=== PATIENT | male | born 2000 | race Caucasian/White ===

== ENCOUNTER 2022-01-28 15:26 | Day surgery (SDC) | payer OTHER ==
[~2022-01-28] VITALS: Ht 193 cm; Wt 73.0 kg
[~2022-01-28 15:26] MED LIST: AMPICILLIN SOD/SULBACTAM SOD 3 GM in D5W MINI-BAG PLUS 100 ML IV ONE; CLON1TAB8 PO; GABA600T4 PO; LR 1,000 ML IV SCH; METH20TA29 PO; OMEP40CA5 PO; dexameTHASONE 4 MG/ML 1ML VIAL (J1100 PER 1MG) IV ONE
[2022-01-28] MEDS ORDERED: CHLORHEXIDINE GLUCONATE 0.12 % 15ML UDC (PERIDEX ORAL RINSE) As Ordered ONE (17:37)
[2022-01-28] MEDS ORDERED: LIDOCAINE 2% W/ EPINEPHRINE 1.7 ML DENTAL INJ As Ordered ONE (17:38)
[2022-01-28] MEDS ORDERED: dexameTHASONE 4 MG/ML 1ML VIAL (J1100 PER 1MG) As Ordered ONE (17:42)
[2022-01-28] MEDS ORDERED: ONDANSETRON 4MG 2ML VIAL As Ordered ONE ×2 (17:42→19:47)
[2022-01-28] MEDS ORDERED: ROCURONIUM BROMIDE 50 MG/5 ML VIAL As Ordered ONE (17:42)
[2022-01-28] MEDS ORDERED: LIDOCAINE 2% INJ 100 MG/5 ML SYRINGE As Ordered ONE (17:42)
[2022-01-28] MEDS ORDERED: KETOROLAC 60MG 2ML VIAL As Ordered ONE (17:42)
[2022-01-28] MEDS ORDERED: MIDAZOLAM INJ 2MG/2ML VIAL (J2250 PER 1MG) As Ordered ONE (17:42)
[2022-01-28] MEDS ORDERED: propofoL 200 MG/20 ML VIAL As Ordered ONE (17:42)
[2022-01-28] MEDS ORDERED: METOCLOPRAMIDE INJ 10MG/2ML VIAL (J2765 PER 1) As Ordered ONE (17:42)
[2022-01-28] MEDS ORDERED: fentaNYL 100 MCG/2 ML INJECTION As Ordered ONE (17:43)
[2022-01-28] MEDS ORDERED: PHENYLEPHRINE 0.5% NASAL SPRAY 15 ML As Ordered ONE (17:46)
[2022-01-28] MEDS ORDERED: SUGAMMADEX SODIUM 500 MG/5 ML VIAL (BRIDION) As Ordered ONE (18:22)
[2022-01-28] MEDS ORDERED: LR 1,000 ML IV SCH (19:20)
[2022-01-28] MEDS ORDERED: fentaNYL 100 MCG/2 ML INJECTION IV PRN (19:20)
[2022-01-28] MEDS ORDERED: oxyCODONE 5MG TAB PO PRN (19:20)
[2022-01-28] MEDS ORDERED: ONDANSETRON 4MG 2ML VIAL IV PRN (19:45)
[2022-01-28] MEDS ORDERED: PROMETHAZINE 25MG/ML 1ML VIAL IV PRN (19:45)
[2022-01-28] MEDS ORDERED: ACETAMINOPHEN 1000MG 100ML IV BTL (OFIRMEV) (J0131 PER 10MG) IV ONE (19:45)
[2022-01-28] MEDS: MORPHINE 2 MG/ML 1ML VIAL IV PRN ×3 (19:50→20:08)
[2022-01-28 20:25] VITALS: BP 126/65
== END 2022-01-28 20:49 | disposition home or self-care (01) ==
LOC: M SDC 15:26
PROVIDERS: ATTEND Dentist
DX: K01.1 Impacted teeth (principal); F32.A Depression, unspecified; F41.0 Panic disorder [episodic paroxysmal anxiety]; K21.9 Gastro-esophageal reflux disease without esophagitis; K58.9 Irritable bowel syndrome, unspecified; G25.81 Restless legs syndrome; Z79.899 Other long term (current) drug therapy; F17.200 Nicotine dependence, unspecified, uncomplicated
CPT/HCPCS: 88300; D7230; D9223; J0131; J1100; J1885; J2250; J2270; J2405; J2765; J3010